=== PATIENT | male | born 1950 | race Caucasian/White ===

== ENCOUNTER 2018-06-03 16:48 | Emergency (ER) | payer MEDICARE, MEDICAID ==
[2018-06-03 16:57] VITALS: BP 148/97
--- NOTE | 2018-06-03 17:00 | UC ---
Hand/Wrist HPI - HPI Summary HPI Summary: 68 yo male presents with right hand laceration sustained about 20min [employer]. He tells me that he was opening a can of cream of mushroom soup and the can slipped and he sustained a laceration to his right hand. He bandaged the area and came to . He is unsure the date of his last tetanus. - History Of Current Complaint Chief Complaint: UCLaceration Stated Complaint: hand injury Time Seen by Provider: 06/03/18 17:00 Hx Obtained From: Patient Onset/Duration: Sudden Onset Severity Initially: Mild Severity Currently: Mild Pain Intensity: 4 Pain Scale Used: 0-10 Numeric - Allergies/Home Medications Allergies/Adverse Reactions: Allergies Allergy/AdvReac Type Severity Reaction Status Date / Time No Known Allergies Allergy Verified 06/03/18 16:57 Home Medications: Home Medications Zolpidem TAB* [Ambien*] 1 tab PO DAILY 06/03/18 [History Confirmed 06/03/18] PMH/Surg Hx/FS Hx/Imm Hx - Additional Past Medical History Additional PMH: Insomnia Chronic pain Endocrine History: Dyslipidemia Cardiovascular History: Hypertension - Surgical History Surgical History: Yes Surgery Procedure, Year, and Place: appendectomy as a child - Family History Known Family History: Positive: Non-Contributory Family History: NON CONTRIBUTORY - Social History Lives: With Family Alcohol Use: None Substance Use Type: Sedatives Smoking Status (MU): Never Smoked Tobacco - Immunization History Most Recent Tetanus Shot: unknown Review of Systems All Other Systems Reviewed And Are Negative: Yes Constitutional: Positive: Negative Skin: Positive: Other - Right hand laceration Respiratory: Positive: Negative Cardiovascular: Positive: Negative Neurovascular: Positive: Negative Musculoskeletal: Positive: Negative Neurological: Positive: Negative Psychological: Positive: Negative Physical Exam - Summary Physical Exam Summary: GENERAL: NAD. WDWN. No pain distress. SKIN: RIGHT HAND: on the thenar eminence there is a diagonal 2.0cm laceration with mild subcutaneous fat exposed. No tendon involvement. CHEST: No accessory muscle use. Breathing comfortably and in no distress. CV: Pulses intact. Cap refill <2seconds MSK: FROM at right hand and all fingers NEURO: Alert. PSYCH: Age appropriate behavior. Triage Information Reviewed: Yes Vital Signs: Initial Vital Signs Temp 97.3 F 06/03/18 16:54 Pulse 72 06/03/18 16:54 Resp 18 06/03/18 16:54 BP 148/97 06/03/18 16:54 Pulse Ox 98 06/03/18 16:54 Vital Signs Reviewed: Yes Hand/Wrist Course/Dx - Course Course Of Treatment: The procedure was explained to the pt and all questions were answered. A time out was performed, witnessed, and signed. The area was irrigated with 250mL sterile saline. 1mL of 2% lidocaine without epi was administered and good anesthetization was achieved. In the usual sterile fashion , THREE 5-0 prolene interrupted sutures were placed. The wound was bandaged with telfa. Pt tolerated procedure well. tdap updated today - Differential Dx/Diagnosis Provider Diagnoses: Right hand laceration Discharge - Sign-Out/Discharge Documenting (check all that apply): Patient Departure All imaging exams completed and their final reports reviewed: No Studies - Discharge Plan Condition: Stable Disposition: HOME Patient Education Materials: Care For Your Stitches (ED), Laceration (DC) Referrals: Paco DASILVA,Gigi Heck [Primary Care Provider] - Additional Instructions: If you develop a fever, shortness of breath, chest pain, new or worsening symptoms - please call your PCP or go to the ED. Your blood pressure was high at todays visit. Please see your primary provider within 4 weeks for recheck and re-evaluation. 1) Please keep the area bandaged, clean, dry, and intact for the next 24- 48hours. 2) If you develop a fever, colored or thick discharge, increased pain or swelling - please call your PCP or go to the ED. 3) Please return in 10-12 days to have your THREE sutures removed. - Billing Disposition and Condition Condition: STABLE Disposition: Home Laceration Repair - Laceration Repair 1 Description: Linear Laceration Size After Repair: Length (cm) - 2.0 Modified For Repair: No Type Injection: Local Anesthesia Used: 2.0% Lido Irrigation With Pressure Irrigation Device: Yes Closure Material: Sutures - #3 Closure Method: Single Layer Suture Of: Skin Suture Type: Prolene - 5-0
[2018-06-03] MEDS ORDERED: Lidocaine 2% PF * 5 ML VIAL INJ ONE (17:16)
[2018-06-03] MEDS ORDERED: Tetan/Diph/Pertus SYR(Tdap)* 0.5 ML SYR(BOOSTRIX) use SYR IM ONE (17:36)
== END 2018-06-03 18:05 | disposition home or self-care (01) ==
LOC: UCEAST 16:48
DX: W45.8XXA Other foreign body or object entering through skin, initial encounter (principal); Y93.G9 Activity, other involving cooking and grilling; Y92.9 Unspecified place or not applicable; S61.411A Laceration without foreign body of right hand, initial encounter; I10 Essential (primary) hypertension
CPT/HCPCS: 12001; 90471; 90715; 99211; G0463

== ENCOUNTER 2018-06-15 10:19 | Emergency (ER) | payer MEDICARE, MEDICAID ==
[2018-06-15 10:53] VITALS: BP 126/85
--- NOTE | 2018-06-15 10:54 | UC ---
Laceration HPI - HPI Summary HPI Summary: 68 yo male presents for suture removal. He had 3 sutures placed on 06/03 by myself s/p laceration due to a can. He says area has been healing well and had no issue. No pain, fever. - History Of Current Complaint Chief Complaint: UCLaceration Stated Complaint: STITCHES REMOVAL Time Seen by Provider: 06/15/18 10:54 Hx Obtained From: Patient Laceration Location: Hand Pain Intensity: 0 - Allergies/Home Medications Allergies/Adverse Reactions: Allergies Allergy/AdvReac Type Severity Reaction Status Date / Time No Known Allergies Allergy Verified 06/15/18 10:45 PMH/Surg Hx/FS Hx/Imm Hx - Additional Past Medical History Additional PMH: Insomnia Endocrine History: Dyslipidemia Cardiovascular History: Hypertension - Surgical History Surgical History: Yes Surgery Procedure, Year, and Place: appendectomy as a child - Family History Known Family History: Positive: Non-Contributory Family History: NON CONTRIBUTORY - Social History Occupation: Retired Lives: With Family Alcohol Use: None Substance Use Type: Marijuana Substance Use Comment - Amount & Last Used: occasional Smoking Status (MU): Former Smoker - Immunization History Most Recent Tetanus Shot: unknown Review of Systems All Other Systems Reviewed And Are Negative: Yes Constitutional: Positive: Negative Skin: Positive: Other - [address] right hand Respiratory: Positive: Negative Cardiovascular: Positive: Negative Neurovascular: Positive: Negative Musculoskeletal: Positive: Negative Neurological: Positive: Negative Psychological: Positive: Negative Physical Exam - Summary Physical Exam Summary: GENERAL: NAD. WDWN. No pain distress. SKIN: RIGHT HAND: Thenar region with [address] Laceration healed well with good approximation. No erythema, edema, or drainage. NECK: Supple. Nontender. No lymphadenopathy. CHEST: No accessory muscle use. Breathing comfortably and in no distress. CV: Pulses intact. Cap refill <2seconds NEURO: Alert. PSYCH: Age appropriate behavior. Triage Information Reviewed: Yes Vital Signs: Initial Vital Signs Temp 98.3 F 06/15/18 10:47 Pulse 62 06/15/18 10:47 Resp 18 06/15/18 10:47 BP 126/85 06/15/18 10:47 Pulse Ox 99 06/15/18 10:47 Vital Signs Reviewed: Yes Laceration Course/Dx - Course/Dx Course Of Treatment: 3 sutures removed without difficulty. - Diagnosis Provider Diagnosis: Visit for suture removal Discharge - Sign-Out/Discharge Documenting (check all that apply): Patient Departure All imaging exams completed and their final reports reviewed: No Studies - Discharge Plan Condition: Stable Disposition: HOME Patient Education Materials: Stitches Removal (ED) Referrals: Paco DASILVA,Gigi Heck [Primary Care Provider] - Additional Instructions: If you develop a fever, shortness of breath, chest pain, new or worsening symptoms - please call your PCP or go to the ED. - Billing Disposition and Condition Condition: STABLE Disposition: Home
== END 2018-06-15 11:03 | disposition home or self-care (01) ==
LOC: UCEAST 10:19
DX: T14.8XXD Other injury of unspecified body region, subsequent encounter (principal); W45.8XXD Other foreign body or object entering through skin, subsequent encounter; I10 Essential (primary) hypertension